=== PATIENT | female | born 1940 | race Caucasian/White ===

== ENCOUNTER → 2020-08-06 | Outpatient (CLI) | payer MEDICARE ==
--- NOTE | 2020-08-06 10:59 | Diagnostic Imaging Report ---
PROCEDURE: MR imaging of the brain without contrast. TECHNIQUE: Multiplanar, multisequence MR imaging of the brain was performed without contrast. INDICATION: Memory difficulty. COMPARISON: No prior studies are available for comparison. FINDINGS: The ventricles and sulci are prominent, consistent with cerebral atrophy. There are fairly significant periventricular and subcortical white matter signal abnormalities, consistent with chronic microvascular ischemia. No diffusion restriction is identified to suggest an acute ischemia. The normal expected flow-voids within the carotid siphons are seen. No acute intra-axial or extra-axial hemorrhage is detected. The corpus callosum is unremarkable. The sella and parasellar structures are unremarkable. IMPRESSION: Cerebral atrophy with changes of chronic microvascular ischemia. No acute intracranial process is detected. Dictated by: Dictated on workstation # [id number]
== END ==
LOC: RAD 09:42
PROVIDERS: ATTEND Psychiatry & Neurology Neurology
DX: I67.82 Cerebral ischemia (principal); G31.9 Degenerative disease of nervous system, unspecified; F03.90 Unspecified dementia, unspecified severity, without behavioral disturbance, psychotic disturbance, mood disturbance, and anxiety
CPT/HCPCS: 70551